=== PATIENT | female | born 1985 | race Caucasian/White ===

== ENCOUNTER 2021-10-11 15:29 | Inpatient (IN) | payer OTHER, MEDICAID ==
[~2021-10-11] VITALS: Ht 165.1 cm; Wt 76.2 kg
[2021-10-11 17:35] LABS: BASOPHILS % (AUTO) 0.6 % (0.0-2.0); EOSINOPHILS % (AUTO) 1.6 % (1.0-6.0); HEMATOCRIT 39.6 % (36-46); HEMOGLOBIN 13.5 g/dL (12.0-16.0); LYMPHOCYTES # (AUTO) 1.5 K/uL (1.0-4.8); LYMPHOCYTES % (AUTO) 26.3 % (22.0-44.0); MEAN CORPUSCULAR HEMOGLOBIN 28.9 pg (26.0-34.0); MEAN CORPUSCULAR HGB CONC 34.1 G/dL (31.0-37.0); MEAN CORPUSCULAR VOLUME 85 fL (80-100); MONOCYTES # (AUTO) 0.4 K/uL (0.1-1.0); MONOCYTES % (AUTO) 6.3 % (2.0-9.0); NEUTROPHILS # (AUTO) 3.7 K/uL (1.8-7.7); NEUTROPHILS % (AUTO) 65.2 % (40.0-70.0); PLATELET COUNT (AUTO) 335 K/uL (150-450); RED BLOOD CELL COUNT(AUTO) 4.68 MIL/uL (4.00-5.20); RED CELL DISTRIBUTION WIDTH 13.2 % (11.5-14.5)
[2021-10-11 17:49] LABS: ANION GAP 12 mmol/L (8-16); CALCIUM, TOTAL 8.5 mg/dL (8.8-10.5); CARBON DIOXIDE 25 mmol/L (22-29); CHLORIDE 109 mmol/L (98-107); CREATININE 0.75 mg/dL (0.60-1.30); GLOMERULAR FILTR. RATE CALC > 60 mL/min (>60); GLUCOSE,RANDOM 89 mg/dL (70-110); POTASSIUM 4.6 mmol/L (3.5-5.1); SODIUM SERUM 146 mmol/L (136-145); UREA NITROGEN, BLOOD 11 mg/dL (7-18)
[2021-10-11 17:57] LABS: ALANINE AMINOTRANSFERASE 22 U/L (12-78); ALKALINE PHOSPHATASE 41 U/L (46-116); ASPARTATE AMINOTRANSFERASE 19 U/L (15-37); BILIRUBIN,TOTAL 0.1 mg/dL (0.1-1.0); HCG,QUANTITATIVE < 1 mIU/mL (0-6); TOTAL PROTEIN, SERUM 6.8 g/dL (6.4-8.2)
[2021-10-11 18:00] LABS: SALICYLATE 1.2 mg/dL (2.8-20.0)
[2021-10-11 18:14] LABS: ACETAMINOPHEN < 2 mcg/mL (10-30)
[2021-10-11 21:53] LABS: ANION GAP 11 mmol/L (8-16); CALCIUM, TOTAL 8.4 mg/dL (8.8-10.5); CARBON DIOXIDE 26 mmol/L (22-29); CHLORIDE 105 mmol/L (98-107); CREATININE 0.77 mg/dL (0.60-1.30); GLUCOSE,RANDOM 90 mg/dL (70-110); POTASSIUM 3.9 mmol/L (3.5-5.1); SODIUM SERUM 142 mmol/L (136-145); UREA NITROGEN, BLOOD 11 mg/dL (7-18)
[2021-10-11 21:59] LABS: GLOMERULAR FILTR. RATE CALC > 60 mL/min (>60)
[2021-10-12] VITALS (8 sets, daily range): BP systolic 101–119; BP diastolic 53–84
[2021-10-12 00:32] LABS: COVID AG,FIA SOURCE NASOPHARYNGEAL
[2021-10-12] MEDS ORDERED: LORazepam 2 MG TABLET PO PRN ×2 (01:00→10:15)
[2021-10-12] MEDS ORDERED: OLANZapine 5 MG RAPDIS TABLET PO PRN (01:00)
[2021-10-12] MEDS ORDERED: ZOLPIDEM TARTRATE 10 MG TABLET PO PRN (01:00)
[2021-10-12] MEDS ORDERED: PNEUMOCOCCAL VACCINE POLYVALENT 0.5 ML VIAL [PPSV23] IM. ONE (03:00)
[2021-10-12] MEDS ORDERED: CYANOCOBALAMIN 1,000 MCG/ML VIAL IM ONE (10:15)
[2021-10-12] MEDS ORDERED: ACETAMINOPHEN 325 MG TABLET PO PRN (10:15)
[2021-10-12] MEDS ORDERED: HydrOXYzine PAMOATE 50 MG CAPSULE PO PRN (10:15)
[2021-10-12] MEDS ORDERED: MAGNESIUM HYDROXIDE SUSPENSION 30 ML UDCUP PO PRN (10:15)
[2021-10-12] MEDS ORDERED: GuaiFENesin/D-METHORPHAN [SUGAR-FREE] 200-20MG/10 ML SYRUP UDCUP PO PRN (10:15)
[2021-10-12] MEDS ORDERED: TUBERCULIN, PURIFIED PROTEIN DERIVATIVE 5 TU/0.1 ML SYRINGE ID ONE (10:15)
[2021-10-12] MEDS ORDERED: MAG HYDROX/AL HYDROX/SIMETH ES 30 ML SUSPENSION UDCUP PO PRN (10:15)
[2021-10-12] MEDS ORDERED: PROMETHAZINE HCL 25 MG TABLET PO PRN (10:15)
[2021-10-12] MEDS ORDERED: LOPERAMIDE HCL 2 MG CAPSULE PO PRN (10:15)
[2021-10-12] MEDS: THIAMINE 100 MG TABLET PO SCH (16:19)
[2021-10-12] MEDS: MELATONIN 5 MG TABLET PO SCH (20:02)
[2021-10-13] MEDS ORDERED: LORazepam 2 MG TABLET PO PRN (07:00)
[2021-10-13 07:39] LABS: HEMOGLOBIN A1C 4.8 % (3.8-5.6)
[2021-10-13 07:50] LABS: CHOL/HDL RATIO 2.3 (3.9-5.7); FREE T4 (FREE THYROXINE) 0.81 ng/dL (0.76-1.46); THYROID STIMULATING HORMONE 1.08 uIU/mL (0.36-3.74)
[2021-10-13 08:00] VITALS: BP_SYST 107; BP_SYST 116; BP_DIAS 54; BP_DIAS 63
[2021-10-13] MEDS ORDERED: ESCITALOPRAM OXALATE 10 MG TABLET PO SCH (09:00)
[2021-10-13] MEDS: LORazepam 2 MG TABLET PO SCH ×4 (10:44→20:42)
[2021-10-13] MEDS: NALTREXONE HCL 50 MG TABLET PO SCH (10:44)
[2021-10-13] MEDS: OMEGA-3/DHA/EPA/FISH OIL 1,000 MG CAPSULE PO SCH (10:44)
[2021-10-13] MEDS: MULTIVITAMINS WITH MINERALS, THERAPEUTIC TABLET PO SCH (10:44)
[2021-10-13] MEDS: THIAMINE 100 MG TABLET PO SCH ×2 (10:44→16:39)
[2021-10-13] MEDS: FOLIC ACID 1 MG TABLET PO SCH (10:44)
[2021-10-13 11:31] VITALS: BP 107/54
[2021-10-13 16:30] VITALS: BP 96/56
[2021-10-13] MEDS: GABAPENTIN 100 MG CAPSULE PO SCH (16:39)
[2021-10-13] MEDS: MELATONIN 5 MG TABLET PO SCH ×2 (20:42→21:32)
[2021-10-14] MEDS ORDERED: ESCITALOPRAM OXALATE 10 MG TABLET PO SCH (09:00)
[2021-10-14] MEDS: FOLIC ACID 1 MG TABLET PO SCH (09:01)
[2021-10-14] MEDS: NALTREXONE HCL 50 MG TABLET PO SCH (09:01)
[2021-10-14] MEDS: THIAMINE 100 MG TABLET PO SCH ×2 (09:01→17:42)
[2021-10-14] MEDS: GABAPENTIN 100 MG CAPSULE PO SCH ×2 (09:01→13:27)
[2021-10-14] MEDS: OMEGA-3/DHA/EPA/FISH OIL 1,000 MG CAPSULE PO SCH (09:02)
[2021-10-14] MEDS: MULTIVITAMINS WITH MINERALS, THERAPEUTIC TABLET PO SCH (09:02)
[2021-10-14] MEDS: LORazepam 2 MG TABLET PO SCH ×4 (09:03→20:55)
[2021-10-14 09:30] VITALS: BP 101/61
[2021-10-14] MEDS ORDERED: OMEG-108 PO (16:04)
[2021-10-14] MEDS ORDERED: GABA-1216 PO (16:04)
[2021-10-14] MEDS ORDERED: MELA5TAB40 PO (16:04)
[2021-10-14] MEDS ORDERED: ESCI10 PO (16:04)
[2021-10-14] MEDS ORDERED: NALT50TA PO (16:04)
[2021-10-14 17:00] VITALS: BP 114/73
[2021-10-14] MEDS: GABAPENTIN 300 MG CAPSULE PO SCH (17:42)
[2021-10-14] MEDS: MELATONIN 5 MG TABLET PO SCH (20:56)
[2021-10-15] MEDS ORDERED: LORazepam 1 MG TABLET PO PRN (07:00)
[2021-10-15 08:00] VITALS: BP 93/58
[2021-10-15] MEDS ORDERED: LORazepam 1 MG TABLET PO SCH (09:00)
[2021-10-15] MEDS ORDERED: ESCITALOPRAM OXALATE 20 MG TABLET PO SCH (09:00)
[2021-10-15] MEDS: MULTIVITAMINS WITH MINERALS, THERAPEUTIC TABLET PO SCH (09:41)
[2021-10-15] MEDS: GABAPENTIN 300 MG CAPSULE PO SCH (09:41)
[2021-10-15] MEDS: NALTREXONE HCL 50 MG TABLET PO SCH (09:41)
[2021-10-15] MEDS: FOLIC ACID 1 MG TABLET PO SCH (09:41)
[2021-10-15] MEDS: THIAMINE 100 MG TABLET PO SCH (09:41)
[2021-10-15] MEDS: OMEGA-3/DHA/EPA/FISH OIL 1,000 MG CAPSULE PO SCH (09:48)
[2021-10-16] MEDS ORDERED: LORazepam 1 MG TABLET PO PRN (07:00)
== END 2021-10-15 11:13 | disposition home or self-care (01) | DRG 885 ==
LOC: EMS 15:33 → 3EI 10-12 00:51
PROVIDERS: ADMIT Psychiatry & Neurology Psychiatry; ATTEND Psychiatry & Neurology Psychiatry
DX: F33.9 Major depressive disorder, recurrent, unspecified (principal); E86.0 Dehydration; F10.10 Alcohol abuse, uncomplicated; F17.210 Nicotine dependence, cigarettes, uncomplicated; F43.10 Post-traumatic stress disorder, unspecified; J45.909 Unspecified asthma, uncomplicated; T39.312A Poisoning by propionic acid derivatives, intentional self-harm, initial encounter; Z20.822 Contact with and (suspected) exposure to COVID-19; Z79.899 Other long term (current) drug therapy; Z83.3 Family history of diabetes mellitus; Z91.410 Personal history of adult physical and sexual abuse; Y92.89 Other specified places as the place of occurrence of the external cause
CPT/HCPCS: 80048; 80053; 80061; 83036; 84439; 84443; 84702; 85025; 86592; 93005; 99285; G0480; G0481; J3420; Q9967